=== PATIENT | male | born 2000 | race Caucasian/White ===

== ENCOUNTER 2022-04-18 04:18 | Emergency (ER) | payer OTHER ==
[~2022-04-18] VITALS: Ht 185.4 cm; Wt 77.3 kg
[2022-04-18 04:21] VITALS: TEMP 97.6
[2022-04-18 06:36] VITALS: BP 139/73; PULSE 92
== END 2022-04-18 06:38 | disposition home or self-care (01) ==
LOC: COL.ER 04:18
DX: S09.90XA Unspecified injury of head, initial encounter (principal); S01.112A Laceration without foreign body of left eyelid and periocular area, initial encounter; S50.312A Abrasion of left elbow, initial encounter; Y04.8XXA Assault by other bodily force, initial encounter